=== PATIENT | female | born 1970 | race Caucasian/White ===

== ENCOUNTER 2020-04-21 13:10 | Emergency (ER) | payer MEDICARE, MEDICAID, SELFPAY ==
[2020-04-21 13:29] VITALS: BP 159/96; PULSE 82; RESP 18; TEMP 36.2; O2SAT 99
--- NOTE | 2020-04-21 13:35 | ED.SKABFB ---
HPI - Skin/Abscess/Foreign Bdy General Chief complaint: Skin/Abscess/Foreign Body Stated complaint: blisters on outside and inside mouth Time Seen by Provider: 04/21/20 13:35 Source: patient Mode of arrival: ambulatory Limitations: no limitations History of Present Illness HPI narrative: Татьяна Love is a 50 yo female with a PMH of HTN, copd, anxiety, Graves disease, fibromyalcia, chronic pain, who comes here with mouths sores that started 5 days ago It is difficult to eat or drink, and are worsening Related Data Home Medications Medication Instructions Recorded Confirmed albuterol 2 mcg INHALATION Q4H PRN 04/21/20 04/21/20 duloxetine 20 mg PO BID 04/21/20 04/21/20 fluoxetine [Prozac] 20 mg PO DAILY 04/21/20 04/21/20 fluoxetine [Prozac] 40 mg PO DAILY 04/21/20 04/21/20 hydrocodone-acetaminophen 1 tablet PO Q8H PRN 04/21/20 04/21/20 levothyroxine 200 mcg PO DAILY 04/21/20 04/21/20 loratadine [Claritin] 10 mg PO DAILY 04/21/20 04/21/20 propranolol 20 mg PO Q12H 04/21/20 04/21/20 Allergies Allergy/AdvReac Type Severity Reaction Status Date / Time codeine Allergy Rash Verified 04/21/20 13:38 Penicillins Allergy Rash Verified 04/21/20 13:35 fentanyl AdvReac Dizziness Verified 04/21/20 13:36 trazodone AdvReac Other Verified 04/21/20 13:35 Review of Systems Review of Systems: Narrative: CONSTITUTIONAL: Denies fever, chills, sweats. EYES: Denies visual changes, redness, discharge. ENT: Denies rhinorrhea, congestion, sore throat, otalgia. CARDIOVASCULAR: Denies chest pain, palpitations, edema. RESPIRATORY: Denies dyspnea, wheezing, cough GASTROINTESTINAL: Denies abdominal pain, nausea, vomiting, diarrhea. GENITOURINARY: Denies dysuria, hematuria, abnormal discharge SKIN: Denies rash or itching. sores on lips NEUROLOGIC: Denies numbness, or focal weakness. PSYCHIATRIC: Denies anxiety or depression. [facility] Past Medical History Medical History (Updated 04/21/20 @ 13:57 by Leesa Coughlin CNP) Anxiety Chronic pain Fibromyalgia HSV (herpes simplex virus) anogenital infection HTN (hypertension) Migraine Family History Family History Other Heart disease Hypertension Social History Social History (Updated 04/21/20 @ 13:38 by Leesa Coughlin CNP) Smoking packs per day: 1 Smoking cigarettes per day: 20.0 Years smoked: 26 Smoking pack-years: 26.00 Smoking status: Current every day smoker Alcohol intake: current Comments My nurse Exam Narrative: Exam Narrative: GENERAL: This is a well-nourished, well-developed patient, in moderate distress. HEAD: normocephalic, atraumatic. EYES: Sclera clear/white. Vision is grossly intact. EARS: External ears normal, Hearing grossly intact. NOSE: External nose normal without nasal discharge, nares without redness, no rhinorrhea. THROAT: Mucous membranes moist, NECK: Neck supple, CARDIOVASCULAR: Regular rate and rhythm without murmurs, gallops, or rubs. RESPIRATORY: Clear to auscultation. Breath sounds equal bilaterally. No wheezes, rales, or rhonchi. GASTROINTESTINAL: Abdomen soft, SKIN: warm, intact with no suspicious lesions or rash, good texture and turgor.Large drying blisters in upper/lower lips NEURO: awake, alert, and oriented to person, place and time. There were no obvious focal neurologic abnormalities. Steady gait EXTREMITIES: Normal range of motion. BACK: Nontender without deformity Course Course Emergency Course: Patient was treated for strep with antibiotics and prednisone and is started to have a herpes lesion outbreak on her lips about 5 days ago She is used all types of the oral medications for HSV with limited success pharmacist recommended she get an oral version of this and antiviral therapy Started on acyclovir and 400 mg 3 times daily x7 days Vital Signs Vital signs: Vital Signs Temperature 97.2 F L 04/21/20 13:29 Pulse Rate 82 04/21/20 13:29 Respiratory Rate 18
[2020-04-21 13:38] VITALS: BP 159/96; PULSE 82; RESP 18; TEMP 36.2; O2SAT 99
== END 2020-04-21 13:55 | disposition home or self-care (01) ==
PROVIDERS: Emergency Provider Nurse Practitioner
DX: B00.1 Herpesviral vesicular dermatitis (principal); F17.210 Nicotine dependence, cigarettes, uncomplicated; F41.9 Anxiety disorder, unspecified; M79.7 Fibromyalgia; I10 Essential (primary) hypertension; J44.9 Chronic obstructive pulmonary disease, unspecified; E05.00 Thyrotoxicosis with diffuse goiter without thyrotoxic crisis or storm
CPT/HCPCS: 99213; G0463